=== PATIENT | female | born 1950 | race Caucasian/White ===

== ENCOUNTER 2016-11-15 10:50 | Emergency (ER) | payer OTHER ==
[~2016-11-15] VITALS: Ht 152.4 cm; Wt 69.0 kg
[~2016-11-15 10:50] MED LIST: DEXI30CA2 PO; HYDR-3580 PO; MELO15 PO; MULT-99 PO; PRIS100T PO; SYNT75TA PO; XANA0.5T PO; [UNRECOGNIZED DRUG - OTHER] PO; thyroid support PO
[2016-11-15 10:55] VITALS: BP 95/58; PULSE 90; RESP 16; TEMP 98.7; O2SAT 95
[2016-11-15] MEDS ORDERED: ANTIDEPRESSANT (11:08)
[2016-11-15] MEDS ORDERED: DEXI30CA PO (11:08)
[2016-11-15] MEDS ORDERED: DESV25TA PO (11:08)
[2016-11-15] MEDS ORDERED: ALPR.5 PO (11:08)
[2016-11-15] MEDS ORDERED: HYDR-3580 PO (11:08)
[2016-11-15] MEDS ORDERED: MELO-1 PO (11:08)
[2016-11-15] MEDS ORDERED: MIRT1TAB PO (11:08)
[2016-11-15] MEDS ORDERED: LEVO75TA3 PO (11:08)
--- NOTE | 2016-11-15 11:18 | PD ---
HPI Chief Complaint: Injury Time Seen by Provider: 11:16 Travel History International Travel<30 days: No Contact w/Intl Traveler<30days: No Traveled to known affect area: No History of Present Illness HPI Patient comes in complaining of left wrist pain ongoing for 2 days. Patient states that she suffered a mechanical fall 2 nights ago when she got from her chair and tripped on the rug. Patient denies any hitting her head or loss consciousness. Patient believes she braced herself with her left hand causing the injury. Patient has been applying ice, using an [id number] wrist splint, and taking her pain medication with minimal relief. Patient states if she is just resting her hand she does not have pain when she goes to move her thumb or pick something up she has pain over the radial aspect of her left wrist. Denies any numbness or tingling. Pain radiates distally. PFSH Past Medical History Depression: Yes GERD: Yes Thyroid Disease: Yes Past Surgical History Joint Replacement: Yes (HIP X2) Tonsillectomy: Yes Social History Alcohol Use: Yes Tobacco Use: No Substance Use: No Allergies-Medications (Allergen,Severity, Reaction): Coded Allergies: Demerol (Verified Allergy, Intermediate, nausea, 11/15/16) Uncoded Allergies: drugs for sleep (Adverse Reaction, Mild, restlessness, 05/18/15) Reported Meds & Prescriptions Reported Meds & Active Scripts Active Reported Mirtazapine 7.5 Mg Tab Unknown Dose PO HS Pristiq 24 HR (Desvenlafaxine ER 24 HR) 25 Mg Tab Unknown Dose PO DAILY [Antidepressant] Dexilant (Dexlansoprazole) 30 Mg Cap Unknown Dose PO DAILY Xanax (Alprazolam) 0.5 Mg Tab 0.5 Mg PO Q4H PRN Meloxicam 15 Mg Tab 15 Mg PO DAILY Hydrocodone-Acetaminophen 7.5-325 mg Tab 1 Tab PO Q4H PRN Levothyroxine (Levothyroxine Sodium) 75 Mcg Tab 75 Mcg PO DAILY Review of Systems Except as stated in HPI: all other systems reviewed are Neg Physical Exam Narrative GENERAL: Well-developed, overly nourished, in no acute distress, and non-ill appearing. SKIN: Focused skin assessment warm and dry. HEAD: Atraumatic. Normocephalic. EYES: Pupils equal and round. EOMI. No scleral icterus. No injection or drainage. ENT: No nasal bleeding or discharge. Mucous membranes pink and moist. NECK: Trachea midline. Supple. No nuclear rigidity. CARDIOVASCULAR: Radial pulses 2+, intact, and equal bilaterally. Capillary refill less than 2 seconds. RESPIRATORY: No accessory muscle use. No respiratory distress. MUSCULOSKELETAL: No obvious deformities. No clubbing. No cyanosis. No edema. Full range of motion. Wrist: FROM and equal BL with passive flexion, extension, and pronation/supination. Capillary refill less than 2 seconds distal to injury and equal BL. FROM distal to injury and equal BL. Strength distal to injury equal BL. NV intact distal to injury. Flexion and extension of thumb equal BL. Equal strength and movement with abduction/adductions of BL fingers. 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 Tenderness to the anatomical snuffbox of left wrist. NEUROLOGICAL: Awake and alert. No obvious cranial nerve deficits. Motor grossly within normal limits. Normal speech. PSYCHIATRIC: Appropriate mood and affect; insight and judgment normal. Data Data Last Documented VS Vital Signs Date Time Temp Pulse Resp B/P Pulse Ox O2 Delivery O2 Flow Rate FiO2 11/15/16 10:55 98.7 90 16 95/58 95 Orders Wrist, Complete ([id number]) (11/15/16 ) Splint Or Brace Apply/Monitor (11/15/16 11:13) Fiberglass Thumb Spica Adult (11/15/16 ) MDM Medical Decision Making Medical Screen Exam Complete: Yes Emergency Medical Condition: Yes Interpretation(s) X-ray read by the radiologist shows: CONCLUSION: 1. No acute fracture or malalignment. 2. Osteopenia and mild to moderate degenerative change. 3. Focal lucency in the lunate bone which is nonspecific. This may represent a subchondral cyst or enchondroma. Comparison with any old outside studies would be helpful. Differential Diagnosis Fracture, sprain, contusion, other Narrative Course The patient sustained a clinical scaphoid fracture. The distal extremity appears neurovascularly intact, without evidence of neurovascular injury nor compartment syndrome. Tendon exam also was intact. The effected limb was splinted. The patient was discharged with fracture and splint care instructions and given warnings for vascular compromise. The patient is to follow up with hand surgeon. The patient agrees with plan. Patient in no obvious distress upon re-evaluation. All pertinent Radiology result(s) discussed with patient. Any questions/concerns in reference to patient diagnosis/condition discussed and clarified prior to patient's discharge. Reinforced sheer importance of close follow up with hand surgeon. Instructed patient to return to ED immediately, if symptoms return/worsen. Pt showed understanding of above instructions. Further instructions and recommendations were detailed in discharge paperwork. Pt ambulated without difficulty out of ED at discharge. Diagnosis Primary Impression: Fracture of scaphoid bone of left wrist Qualified Code: S62.002A - Closed nondisplaced fracture of scaphoid of left wrist, unspecified portion of scaphoid, initial encounter Referrals: Smita Guzmán MD Patient Instructions: General Instructions, How to Use a Sling (GEN), Scaphoid Fracture (ED), Splint Care (ED) Additional Instructions: Follow-up with your hand surgeon in 2-3 days for reevaluation. Apply ice to affected area 20 minutes as needed for pain. Return to the emergency department if symptoms get worse. Disposition: 01 DISCHARGE HOME Condition: Stable Mulugeta Yan Nov 15, 2016 11:18
--- NOTE | 2016-11-15 12:10 | RADHPO ---
EXAM DATE/TIME: 11/15/2016 11:22 [facility] COMPARISON: No previous studies available for comparison. INDICATIONS : Left wrist pain. MEDICAL HISTORY : None. SURGICAL HISTORY : None. ENCOUNTER: Initial ACUITY: 2 days PAIN SCORE: 8/10 LOCATION: Left wrist FINDINGS: AP, lateral and oblique views of the left wrist were obtained and demonstrate osteopenia normal align ment. There is a focal 6 x 6 mm lucency in the lunate bone. There is no acute fracture. There are deg enerative changes in the first metacarpal carpal joint and trapezium scaphoid joint with sclerosis an d hypertrophic change. There are milder degenerative changes throughout the carpus. The distal radius and ulna are intact. There is mild soft tissue prominence. CONCLUSION: 1. No acute fracture or malalignment. 2. Osteopenia and mild to moderate degenerative change. 3. Focal lucency in the lunate bone which is nonspecific. This may represent a subchondral cyst or en chondroma. Comparison with any old outside studies would be helpful. Jamil Barrios MD on November 15, 2016 at 12:05 Board Certified Radiologist. This report was verified electronically.
== END 2016-11-15 12:30 | disposition home or self-care (01) ==
LOC: PHEFT 10:50
DX: S62.002A Unspecified fracture of navicular [scaphoid] bone of left wrist, initial encounter for closed fracture (principal); W01.0XXA Fall on same level from slipping, tripping and stumbling without subsequent striking against object, initial encounter; Y93.89 Activity, other specified; Y92.009 Unspecified place in unspecified non-institutional (private) residence as the place of occurrence of the external cause; M85.80 Other specified disorders of bone density and structure, unspecified site
CPT/HCPCS: 73110; 99283; L3808